=== PATIENT | male | born 1970 | race Two or more races ===

== ENCOUNTER 2022-10-22 06:13 | Emergency (ER) | payer OTHER ==
[2022-10-22 06:39] VITALS: BP 135/77; PULSE 54; RESP 18; TEMP 98.1; BMI 29.3
[2022-10-22] MEDS ORDERED: ACETAMINOPHEN 500 MG TABLET (FP) PO ONE (07:34)
[2022-10-22] MEDS ORDERED: MAG HYDROX/AL HYDROX/SIMETH 30 ML UNIT-DOSE CUP PO ONE (07:34)
[2022-10-22] MEDS ORDERED: ACETAMINOPHEN 325 MG TABLET (FP) ONE (08:10)
[2022-10-22] MEDS ORDERED: MAG HYDROX/AL HYDROX/SIMETH 30 ML UNIT-DOSE CUP ONE (08:10)
[2022-10-22 08:59] LABS: BASO % 0.8 % (0-2.0); EOS % 4.1 % (0-4.5); HEMATOCRIT 43.2 % (35.4-49); HEMOGLOBIN 14.4 GM/dL (11.7-16.9); LYMPH % 33.6 % (8-40); MCH 27.8 pg (25.7-33.7); MCHC 33.3 g/dl (32.0-35.9); MEAN CELL VOLUME 83.5 fl (80-96); MEAN PLT VOLUME 8.2 fl (7.5-11.1); MONO % 8.2 % (3.8-10.2); NEUT % 53.3 % (42.8-82.8); PLATELET COUNT 220 10^3/uL (134-434); RBC 5.18 M/mm3 (4.00-5.60); RDW 13.3 % (11.9-15.9); WHITE BLOOD COUNT 4.9 K/mm3 (4.0-10.0)
[2022-10-22 09:03] LABS: POTASSIUM 4.5 mmol/L (3.5-5.1)
[2022-10-22 09:05] LABS: CALCIUM 9.5 mg/dL (8.5-10.1)
[2022-10-22 09:06] LABS: ALBUMIN 3.9 g/dl (3.4-5.0); BLOOD UREA NITROGEN 19.8 mg/dL (7-18)
[2022-10-22 09:10] LABS: BILIRUBIN,TOTAL 0.4 mg/dL (0.2-1); TOT PROT 7.4 g/dl (6.4-8.2)
== END 2022-10-22 12:26 | disposition home or self-care (01) ==
LOC: JER 06:13
DX: R07.89 Other chest pain (principal)
CPT/HCPCS: 36415; 71045-TC-FY; 80053; 83690; 84484; 85025; 93005; 93010; 99285-25